=== PATIENT | female | born 1990 | race Caucasian/White ===

== ENCOUNTER 2020-05-27 20:09 | Emergency (ER) | payer OTHER ==
[~2020-05-27] VITALS: Ht 162.6 cm; Wt 49.9 kg
== END 2020-05-27 22:38 | disposition home or self-care (01) ==
LOC: ER 20:09
DX: J32.8 Other chronic sinusitis (principal); R42 Dizziness and giddiness; R51.9 Headache, unspecified

== ENCOUNTER 2020-07-19 16:46 | Emergency (ER) | payer OTHER ==
[~2020-07-19] VITALS: Ht 162.6 cm; Wt 52.2 kg
== END 2020-07-19 21:21 | disposition home or self-care (01) ==
LOC: ER 16:46
DX: J06.9 Acute upper respiratory infection, unspecified (principal); B34.9 Viral infection, unspecified; Z03.818 Encounter for observation for suspected exposure to other biological agents ruled out

== ENCOUNTER 2021-04-16 17:30 | Emergency (ER) | payer OTHER ==
[~2021-04-16] VITALS: Ht 160 cm; Wt 53.5 kg
== END 2021-04-16 22:02 | disposition home or self-care (01) ==
LOC: ER 17:30
DX: U07.1 COVID-19 (principal); B34.9 Viral infection, unspecified; Z20.822 Contact with and (suspected) exposure to COVID-19

== ENCOUNTER 2021-09-07 14:19 | Emergency (ER) | payer OTHER ==
[~2021-09-07] VITALS: Ht 167.6 cm; Wt 54.4 kg
== END 2021-09-07 20:43 | disposition home or self-care (01) ==
LOC: ER 14:19
DX: O26.891 Other specified pregnancy related conditions, first trimester (principal); Z3A.01 Less than 8 weeks gestation of pregnancy; N23 Unspecified renal colic; R10.84 Generalized abdominal pain

== ENCOUNTER 2021-09-11 05:57 | Day surgery (SDC) | payer OTHER | END 2021-09-11 15:35 | disposition home or self-care (01) | LOC: CIR.AMB 05:57 | PROVIDERS: ATTEND Obstetrics & Gynecology | DX: O03.4 Incomplete spontaneous abortion without complication (principal); Z86.16 Personal history of COVID-19; Z20.822 Contact with and (suspected) exposure to COVID-19 ==

== ENCOUNTER 2021-10-17 18:21 | Emergency (ER) | payer OTHER ==
[~2021-10-17] VITALS: Ht 162.6 cm; Wt 52.2 kg
== END 2021-10-17 22:52 | disposition home or self-care (01) ==
LOC: ER 18:21
DX: N83.201 Unspecified ovarian cyst, right side (principal); R10.2 Pelvic and perineal pain

== ENCOUNTER 2022-04-22 12:59 | Emergency (ER) | payer OTHER ==
[~2022-04-22] VITALS: Ht 162.6 cm; Wt 52.2 kg
== END 2022-04-22 17:10 | disposition home or self-care (01) ==
LOC: ER 12:59
DX: J22 Unspecified acute lower respiratory infection (principal); Z20.822 Contact with and (suspected) exposure to COVID-19

== ENCOUNTER 2022-09-22 19:27 | Emergency (ER) | payer OTHER ==
[~2022-09-22] VITALS: Ht 162.6 cm; Wt 52.2 kg
[2022-09-22] MEDS ORDERED: ANALPRAM HC 2.530 GM RECTAL (21:02)
== END 2022-09-22 21:11 | disposition home or self-care (01) ==
LOC: ER 19:27
DX: K64.9 Unspecified hemorrhoids (principal); K62.5 Hemorrhage of anus and rectum; Z91.018 Allergy to other foods

== ENCOUNTER 2025-02-05 08:19 | Emergency (ER) | payer OTHER ==
[~2025-02-05] VITALS: Ht 162.6 cm; Wt 54.4 kg
[~2025-02-05 08:19] MED LIST: ANALPRAM HC 2.530 GM RECTAL
[2025-02-05] MEDS ORDERED: DEXAMETHASONE SODIUM PHOSPHATE 4 MG/ML VIAL IV ONE (09:00)
[2025-02-05] MEDS ORDERED: KETOROLAC TROMETHAMINE 30 MG VIAL IV ONE (09:00)
[2025-02-05] MEDS ORDERED: FAMOtidine 10 MG/ML (4ML VIAL) IV PUSH ONE (09:00)
[2025-02-05] MEDS ORDERED: 0.9 % SODIUM CHLORIDE 1,000 ML IV SCH (09:00)
[2025-02-05] MEDS ORDERED: ONDANSETRON HCL 2 MG/ML VIAL IV ONE (09:00)
[2025-02-05] MEDS ORDERED: 0.9 % SODIUM CHLORIDE 1,000 ML IV ONE (09:00)
[2025-02-05] MEDS ORDERED: KETOROLAC TROMETHAMINE 30 MG VIAL ONE (09:21)
[2025-02-05] MEDS ORDERED: DEXAMETHASONE SODIUM PHOSPHATE 4 MG/ML VIAL ONE (09:21)
[2025-02-05] MEDS ORDERED: ONDANSETRON HCL 2 MG/ML VIAL ONE (09:21)
[2025-02-05] MEDS ORDERED: FAMOTIDINE/PF 20 MG/2 ML VIAL ONE (09:21)
[2025-02-05 09:50] LABS: BASO % 0.4 % (0.1-1.2); EOS # 0.15 (0.04-0.54); EOS % 1.7 % (0.7-7.0); LYMPH # 2.02 (1.18-3.74); LYMPH % 22.3 % (19.3-53.1); MEAN PLATELET VOLUME 10.40 fl (9.4-12.4); MONO # 0.47 (0.24-0.82); MONO % 5.2 % (4.7-12.5); NEUT # 6.34 (1.56-6.13); NEUT % 70.1 % (34.0-71.1); RED CELL DISTRIBUTION WIDTH 11.8 % (11.6-14.4)
[2025-02-05 10:14] LABS: ERYTHROCYTE SEDIMENTATION RATE 5 mm/hr (0-20)
[2025-02-05 10:16] LABS: INR 1.02
[2025-02-05 10:19] LABS: URINE APPEARANCE Cloudy; URINE BILIRRUBIN Negative (NEGATIVE); URINE BLOOD Negative; URINE COLOR Yellow; URINE GLUCOSE Negative (NEGATIVE); URINE LEUKOCYTE Negative; URINE NITRATE Negative; URINE PROTEIN Negative (NEGATIVE); URINE UROBILINOGEN 0.2 E.U./dl
[2025-02-05 10:24] LABS: URINE BACTERIA 64.7 uL (0.0-1933); URINE EPITHELIAL CELLS 9.6 uL (0.0-38.8); URINE RBC 14.0 uL (0.0-20.8); URINE WBC 5.6 uL (0.0-23.2)
[2025-02-05 10:29] LABS: URINE CAST 0.58 uL (0.0-1.40); URINE KETONE 80 (NEGATIVE)
[2025-02-05 10:30] LABS: ALT/SGPT 17 U/L (12-78); AST/SGOT 15 U/L (15-37); BILIRUBIN TOTAL 0.36 mg/dL (0.3-1.2); BUN CREA RATIO 19 (7.0-25.0); CREATININE SERUM 0.62 mg/dL (0.55-1.02); GFR 108.91; GLOBULINA 3.7 G/DL (2.4-3.5); GLUCOSE FASTING 131 mg/dL (65-100); OSMOLALITY SERUM 277 MOSM/KG (275-295)
[2025-02-05 10:31] LABS: HCG QUANTITATIVE < 1 mUI/mL (1-3)
[2025-02-05] MEDS ORDERED: DICY20TA PO (12:29)
[2025-02-05] MEDS ORDERED: PEPCID AC20 MG PO (12:29)
[2025-02-05] MEDS ORDERED: MIRALAX17 GM PO (12:29)
== END 2025-02-05 12:45 | disposition home or self-care (01) ==
LOC: ER 08:19
PROVIDERS: General Practice
DX: R10.13 Epigastric pain (principal); R10.9 Unspecified abdominal pain; Z91.018 Allergy to other foods